=== PATIENT | male | born 1995 | race Caucasian/White ===

== ENCOUNTER 2017-07-04 17:23 | Emergency (ER) | payer SELFPAY ==
[~2017-07-04] VITALS: Ht 172.7 cm; Wt 54.0 kg
[2017-07-04] MEDS ORDERED: IBUPROFEN 600MG TABLET PO ONE (18:00)
[2017-07-04] MEDS ORDERED: SODIUM CHLORIDE 0.9% 1,000 ML IV ONE (18:59)
[2017-07-04 19:24] LABS: BASOPHILS % 0.5 % (0.0-2.0); HEMATOCRIT. 41.5 % (42.0-52.0); HEMOGLOBIN. 14.1 g/dL (14.0-18.0); LYMPHOCYTES % 24.9 % (20.0-50.0); MEAN CORPUSCULAR HEMOGLOBIN 28.6 pg (28.0-32.0); MEAN CORPUSCULAR VOLUME 84.5 fL (80.0-94.0); MEAN PLATELET VOLUME 8.4 fl (7.4-10.4); MONOCYTES % 6.1 % (2.0-8.0); NEUTROPHILS % 65.5 % (40.0-76.0); PLATELET 290 x1000/uL (130-400); RED BLOOD CELL COUNT 4.92 mill/uL (4.7-6.1); RED CELL DISTRIBUTION WIDTH 13.5 % (11.6-14.6)
[2017-07-04 19:33] LABS: CHLORIDE 105 mEq/L (98-107); INR 1.1; PARTIAL THROMBOPLASTIN TIME 28.7 sec (23.4-31.0); PROTHROMBIN TIME 11.7 sec (9.4-11.6)
[2017-07-04 19:36] LABS: CARBON DIOXIDE 28 mEq/L (21-32)
[2017-07-04 19:41] LABS: TROPONIN I < 0.02 ng/mL (0.00-0.04)
[2017-07-04] MEDS ORDERED: PIPERACILLIN/TAZ 3.375G PREMIX 50 ML IV ONE (19:45)
[2017-07-05 01:06] VITALS: BP 117/67
== END 2017-07-05 01:20 | disposition short-term general hospital (02) ==
LOC: ER 18:02
DX: S02.82XA Fracture of other specified skull and facial bones, left side, initial encounter for closed fracture (principal); S20.211A Contusion of right front wall of thorax, initial encounter; J98.2 Interstitial emphysema; M54.2 Cervicalgia; Y04.0XXA Assault by unarmed brawl or fight, initial encounter; Y93.89 Activity, other specified; Y92.89 Other specified places as the place of occurrence of the external cause; Y99.8 Other external cause status
CPT/HCPCS: 36415; 70450; 70486; 71010; 72125; 80053; 83690; 83880; 84443; 84484; 85025; 85610; 85730; 93005; 96365; 99291; J2543; J7030; Z7610